=== PATIENT | female | born 1940 | race Caucasian/White ===

== ENCOUNTER 2019-11-06 06:51 | Inpatient (IN) ==
[2019-11-06] MEDS ORDERED: MORPHINE IV ONE ×2 (07:25→09:42)
[2019-11-06] MEDS ORDERED: NS 1,000 ML IV ONE (07:25)
[2019-11-06] MEDS ORDERED: ZOFRAN IV ONE (07:25)
--- NOTE | 2019-11-06 07:39 | PROVIDER DOCUMENTATION ---
HPI-General Adult - General Chief Complaint: Abdominal Pain Stated Complaint: abdominal pain n/v Time Seen by Provider: 11/06/19 07:19 Source: patient Allergies/Adverse Reactions: Patient Allergies Allergy/AdvReac Type Severity Reaction Status Date / Time codeine Allergy Unknown Verified 11/06/19 07:27 Home Medications: Home Medication List Medication Instructions Recorded Confirmed Last Taken Type Amiodarone [Cordarone] 200 mg PO DAILY 11/06/19 11/06/19 Unknown History Hydrochlorothiazide 25 mg PO DAILY 11/06/19 11/06/19 Unknown History Levothyroxine [Synthroid] 88 mcg PO DAILY 11/06/19 11/06/19 Unknown History Losartan [Cozaar] 100 mg PO DAILY 11/06/19 11/06/19 Unknown History Pravastatin Sodium 20 mg PO QHS 11/06/19 11/06/19 Unknown History - History of Present Illness -Gen Adult Nature of Presenting Problems: 030 onset uncontrolled upper abd pain and vomiting. vomit x 5 , diarrhea yesterday x 2. no fever allergic codeine can take morphine. no fever, no cough or sob. no pprior. A Fib and HTN but no anti-coag. PCP Carli Herr. Review of Systems - Adult - REVIEW OF SYSTEMS - ADULT Constitutional: reports: no symptoms reported. denies: chills, fever Eyes: reports: no symptoms reported Ears, Nose, Mouth & Throat: reports: no symptoms reported Cardiovascular: reports: irregular heart rate. denies: chest pain Respiratory: reports: no symptoms reported Gastrointestinal: reports: see HPI, abdominal pain, nausea, vomiting Genitourinary: denies: frequency, flank pain, urinary retention Musculoskeletal: reports: no symptoms reported Integumentary: reports: no symptoms reported Neurological: reports: no symptoms reported Psychiatric: reports: no symptoms reported Endocrine: reports: no symptoms reported Hematologic/Lymphatic: reports: no symptoms reported Allergic/Immunologic: reports: no symptoms reported All Other Systems: Reviewed and Negative Past History - Adult - PAST MEDICAL HISTORY-ADULT Review of Records: reports: Old Records Reviewed, Nursing Assessment Review, Medications Reviewed, Social history reviewed & non-contributory. Major Childhood Illnesses: reports: denies history Cardiovascular: reports: denies history Respiratory: reports: denies history Gastrointestinal: reports: denies history Obstetrical/Gynecological: reports: denies history Genitourinary: reports: denies history Musculoskeletal: reports: denies history Neurological: reports: denies history Endocrine/Immune: reports: denies history Other Conditions: reports: denies history Physical Exam-General - PHYSICAL EXAM-ADULT Initial Vital Signs Reviewed: Yes - CONSTITUTIONAL General Appearance: alert, moderate distress - EYES Eyes: PERRL/EOMI - HEAD, EARS, NOSE, MOUTH & THROAT HENMT: normocephalic/atraumatic, moist mucous membranes - NECK Neck: non-tender, full range of motion, supple - RESPIRATORY Respiratory: chest non-tender, lungs clear, normal breath sounds - CARDIOVASCULAR Cardiovascular: normal peripheral pulses, regular rate, rhythm, no edema, no gallop, no JVD, no murmur Progress - PLAN OF CARE/RESULTS Progress/Plan/Lab Results: Vital Signs - 8 hr 11/06/19 06:52 Temperature 97.7 F Pulse Rate 72 Respiratory Rate 22 Blood Pressure 178/92 O2 Sat by Pulse Oximetry 100 Orders Category Date Time Status Cardiac Monitoring DIRECTED Care 11/06/19 07:27 Ordered NEWS Score 2-4:Order NEWS Lactate Series NOW Care 11/06/19 07:01 Active Saline Loc NOW Care 11/06/19 07:27 Ordered NPO Diet 11/06/19 07:[address] ABD/PELVIS W/IV CONT ONLY [CT] Stat Exams 11/06/19 07:28 Ordered BLOOD CULTURE [BLDCUL] Stat Lab 11/06/19 07:27 Ordered CBC WITH ELECTRONIC DIFF [HEME] Stat Lab 11/06/19 07:27 Uncollected COMPREHENSIVE METABOLIC PANEL [CHEM] Stat Lab 11/06/19 07:27 Uncollected LACTATE, PLASMA [CHEM] Lab 11/06/19 07:15 Uncollected LACTATE, PLASMA [CHEM] Lab 11/06/19 10:15 Uncollected LACTATE, PLASMA [CHEM] Lab 11/06/19 13:15 Uncollected LIPASE [CHEM] Stat Lab 11/06/19 07:27 Uncollected MAGNESIUM [CHEM] Stat Lab 11/06/19 07:27 Uncollected OCCULT BLOOD NON-FECES Stat Lab 11/06/19 07:28 Uncollected PRO B-NATRIURETIC PEPTIDE Stat Lab 11/06/19 07:28 Uncollected TROPONIN T HIGH SENSITIVITY Stat Lab 11/06/19 07:28 Uncollected URINALYSIS W/POSS RFLX CULT [URINALYSIS] Stat Lab 11/06/19 07:28 Uncollected 0.9% Sodium Chloride Inj [Ns] 1,000 ml Med 11/06/19 07:25 Ordered IV 125 mls/hr Morphine Med 11/06/19 07:25 Once 4 mg IV NOW ONE Ondansetron [Zofran] Med 11/06/19 07:25 Once 4 mg IV NOW ONE EKG [EKG] Stat Ther 11/06/19 07:27 Ordered Result Diagrams: 11/06/19 07:38 11/06/19 07:38 - REASSESSMENT Reassessment #1 Time Reassessed: 09:58 Status: unchanged (pain better, note LA 2.5, no leukocytosis.: partial SBO) - CT/MRI 1 CT Study: Abdomen Impression: See EMR Report (partial SBO) - CONSULTS/PCP/HOSPITALIST Notification #1 *Consult/PCP/Hospitalist*: for hospitalist: dr Calvin Time Discussed: 10:02 Consult Disposition: Admit Departure - Departure Date of Disposition Decision: 11/06/19 Time of Disposition Decision: 10:03 DIAGNOSIS: Partial small bowel obstruction, Lactic acidosis Disposition: ADMITTED INPATIENT 09 Certified Medical Emergency: Emergent Condition: Stable Referrals and Follow-Ups: None,PCP [Primary Care Provider] - - Critical Care Note This patient required my direct & personal management of CC.: No Attestation - Physician/ ZENAIDA Attestation The physician spent face to face time with patient:: Yes Advanced Practice Provider documentation review:: Supervising physician onsite and consulted in the evaluation and care of this patient. The physician did have a face to face encounter with the patient.
[2019-11-06 07:44] LABS: BASO# 0.06 X1000 (0.0-0.2); EOS# 0.14 X1000 (0.0-0.7); EOS% 2.3 % (0.0-10.0); HEMATOCRIT 41.9 % (37.0-47.0); HEMOGLOBIN 13.4 g/dL (12.0-16.0); LYMPH# 1.79 X1000 (1.2-3.4); LYMPH% 29.8 % (20.5-51.1); MCH 30.2 PG (27-31); MCV 94.4 FL (81-99); MONO# 0.41 X1000 (0.11-0.59); MONO% 6.8 % (1.7-9.3); MPV 9.7 FL (7.4-10.4); NEUT# 3.61 X1000 (1.4-6.5); NEUT% 60.1 % (42.2-75.2); PLT 305 X1000 (130-400); RBC 4.44 XMIL (4.2-5.4); RDW 13.8 % (11.5-14.5); WBC 6.01 X1000 (4.8-10.8)
[2019-11-06 08:04] LABS: ALB/GLOB RATIO 2.3; ALBUMIN 4.1 g/dL (3.5-5.0); CALCIUM 10.2 mg/dL (8.8-10.2); CREATININE 1.3 mg/dL (0.5-0.9); MAGNESIUM 1.8 mg/dL (1.5-2.7); POTASSIUM 3.9 mmol/L (3.5-5.1); TOTAL BILIRUBIN 0.47 mg/dL (0.20-1.00); TOTAL PROTEIN 5.9 g/dL (6.3-8.3)
[2019-11-06 08:06] LABS: URINE SOURCE CLEAN CATCH
[2019-11-06 08:09] LABS: BILIRUBIN URINE NEGATIVE (NEGATIVE); BLOOD URINE NEGATIVE (NEGATIVE); COLOR YELLOW; GLUCOSE URINE NEGATIVE (NEGATIVE); KETONE URINE TRACE mg/dL (NEGATIVE); LEUKOCYTES URINE SMALL (NEGATIVE); NITRITE URINE NEGATIVE (NEGATIVE); PH URINE 7.5; PROTEIN URINE NEGATIVE (NEGATIVE); SP GRAVITY URINE 1.017; TURBIDITY URINE CLEAR (CLEAR); UROBILINOGEN URINE NORMAL (NORMAL)
[2019-11-06 08:10] LABS: UR EPITHELIAL CELLS <10 /HPF (<10); URINE BACTERIA NEGATIVE /HPF; URINE RBC <10 /HPF (<10); URINE WBC <10 /HPF (<10)
--- NOTE | 2019-11-06 08:58 | Diag Imaging Result Doc PS360 ---
EXAM: CT ABD/PELVIS W/IV CONT ONLY HISTORY: abd pain/obstruction/vomit TECHNIQUE: CT abdomen and pelvis with intravenous contrast, but without oral contrast. COMPARISON: None. FINDINGS: Prominent coronary artery calcifications with mild cardiomegaly. There is fibrosis in the lower lungs. The gallbladder has been removed. No focal hepatic abnormality although there is mild intrahepatic biliary dilatation. The common bile duct measures 12 mm. The pancreas is atrophic. No splenomegaly. There is a tiny amount of fluid about the spleen. Normal adrenal glands. There is scarring to each kidney. No hydronephrosis. Prominent atherosclerosis. No aortic aneurysm. There are fluid distended loops of bowel in the left abdomen. The distal small bowel loops are not distended. There is stool throughout the colon. There are sigmoid colonic diverticula. Tiny amount of fluid in the pelvis. The uterus has been removed. No pelvic mass. Urinary bladder is distended and normal. Orthopedic replacement of the left hip. There has been prior surgery to the lower lumbar spine. IMPRESSION: 1.Partial small bowel obstruction in the left abdomen 2.Cardiomegaly with prominent coronary artery calcifications and pulmonary fibrosis 3.Cholecystectomy with mild intrahepatic biliary dilatation 4.Trace ascites 5.Scarring to the kidneys 6.Hysterectomy 7.Sigmoid diverticulosis. This exam was performed using automated exposure control, adjustment of mA or kV according to patient size, and/or use of iterative reconstruction technique. Electronically signed by Praneeth Kiser 11/06/2019 8:56 AM
[2019-11-06 09:20] LABS: INR 0.86; PROTIME 11.7 Seconds (11.0-16.0)
[2019-11-06 09:21] LABS: PTT 27.2 Seconds (22.3-41.8)
--- NOTE | 2019-11-06 09:36 | Diag Imaging Result Doc PS360 ---
EXAM: CHEST-1 VIEW HISTORY: elevated lactate TECHNIQUE: Single view COMPARISON: None. FINDINGS: Poor inspiratory effort. The heart is not enlarged. There are increased interstitial markings in the mid and lower lungs. No consolidation. No pleural effusions identified. IMPRESSION: Cardiomegaly with mild pulmonary edema versus fibrosis Electronically signed by Praneeth Kiser 11/06/2019 9:33 AM
[2019-11-06] MEDS ORDERED: APRESOLINE IV PRN (10:27)
[2019-11-06] MEDS ORDERED: SODIUM CHLORIDE 0.9% INJ PRN (10:33)
[2019-11-06] MEDS ORDERED: SODIUM CHLORIDE 0.9% INJ SCH (10:45)
--- NOTE | 2019-11-06 11:19 | HISTORY AND PHYSICAL ---
PRIMARY CARE PROVIDER: Carli Herr MD. NEUROSURGEON: Primary neurosurgeon that recently did surgery on her back is Dr. Neil in [place]. CHIEF COMPLAINT: Nausea, vomiting, and bilateral upper quadrant abdominal pain. HISTORY OF PRESENT ILLNESS: Ms. Katelynn Tinsley is a 79-year-old female, with a medical history of hypothyroidism, hypertension, paroxysmal atrial fibrillation, and hyperlipidemia, who presents with bilateral upper quadrant abdominal pain that started around 3 a.m., throbbing in nature and continuous. Also, with nausea, vomiting, green to light brown in color. Last bowel movement being yesterday, it was a large amount, started out firm and then loosened up. She states that on October 20 she had L3 through L5 back surgery by Dr. Neil at [facility]. She has been taking [place] 5, but maybe only once every other day, much less active than she is used to, just short distances in the house due to the numbness and tingling and aching that she feels in her feet, and the weakness she feels in her legs, so she has been less active. Abdominal imaging reveals that she does have a partial small-bowel obstruction, so we will keep her n.p.o. and treat her symptomatically as well, and we will consult General Surgery. PAST MEDICAL HISTORY: 1. Hypothyroidism. 2. Hypertension. 3. Hyperlipidemia. 4. Paroxysmal atrial fibrillation, currently in normal sinus rhythm. 5. Sigmoid diverticulosis. PAST SURGICAL HISTORY: October 20 L3 through L5 back surgery at [facility] by Dr. Neil. Hysterectomy. She states a stomach surgery where they had to burn some nerves in her stomach; she was really unable to give much detail on that. Cholecystectomy. Appendectomy. Rectocele repair with mesh. SOCIAL HISTORY: Quit smoking in 2004. Prior to that she was a 1-pack per day smoker and started at the age of 29. Denies alcohol or illicit drug use. She lives at home alone. Her 1 month ago. She uses a walker to get around for ambulation. FAMILY HISTORY: Mother had diabetes and heart disease. Father had a heart attack and at the age of 46. ALLERGIES: Codeine. REVIEW OF SYSTEMS: Fourteen point review of systems are complete and all were negative except for those mentioned above in the HPI. PHYSICAL EXAMINATION: VITAL SIGNS: Temperature 97.7 degrees, heart rate 63, respiratory rate 20, blood pressure 177/87, O2 saturation 95% on room air. GENERAL: Ms. Katelynn Tinsley is a 79-year-old female. She is in no acute distress. She is able to answer questions appropriately. HEENT: Atraumatic, normocephalic. Pupils equal, round, and reactive to light. Extraocular movements intact. Mucous membranes are dry. NECK: Trachea midline. CARDIOVASCULAR: S1, S2. Regular rate and rhythm. No rubs, gallops, murmurs. No lower extremity edema. +2 dorsalis and radial pulses. Negative JVD and carotid bruits. PULMONARY: Clear to auscultate bilateral breath sounds. No accessory muscle use or work of breathing noted. GI: Soft, tender in the bilateral upper quadrants. She has positive bowel sounds x4. EXTREMITIES: Moves all extremities equally, with decreased range of motion. NEUROLOGIC: A and O x3. Follows commands. Decreased sensory bilateral lower extremities. They are numb and tingly, which has been that way since surgery. SKIN: Warm, dry, intact, with some bruising throughout the arms. Lumbar 3 through lumbar 5 incision dry, intact, and currently in the healing process. No signs or symptoms of infection, and it is well approximated. LABORATORY DATA: White blood cells 6,000, hemoglobin 13, hematocrit 41, platelet count 305,000. INR is 0.86, PTT is 27.2. Sodium 140, potassium 3.9, BUN 19, creatinine is 1.3, glucose 137. Calcium 10.2. Magnesium 1.8. Bilirubin 0.47. AST 21, ALT 14. CK 60. Troponin 52. ProBNP is 222. Albumin 4.1. Lipase 10. Lactate 2.5. Urinalysis with trace ketones, small leukocytes. IMAGING: Chest x-ray, cardiomegaly with mild pulmonary edema versus fibrosis. Abdominal pelvic CT, partial small-bowel obstruction in the left abdomen, cardiomegaly with coronary artery calcifications and pulmonary fibrosis, cholecystectomy with mild intrahepatic biliary dilatation, trace ascites, scarring to the kidneys, hysterectomy, sigmoid diverticulosis. ASSESSMENT AND PLAN: 1. Partial small-bowel obstruction, likely secondary to use of [place] and less activity post L3 through L5 back surgery that was performed on October 20. Currently, she is having emesis. She did have a large bowel movement yesterday. She still has positive bowel sounds. General Surgery has been consulted. Antiemetics added, pain medication added for pain control. We are currently keeping her n.p.o. We will order Physical Therapy to help her increase her activity. 2. Dehydration, with lactic acidosis. No other signs of infection. Lactic acidosis is secondary to dehydration. She is receiving IV fluid hydration. However, we will need to watch this as the imaging does show some pulmonary edema, but she is on room air and without any respiratory distress. 3. Mild acute kidney injury. This is secondary to dehydration. Kidney function, GFR down to 40, creatinine is 1.3. We will recheck in the morning. There are no old records to evaluate if she is she has a history of this. 4. History of paroxysmal atrial fibrillation, on amiodarone. She is currently in normal sinus rhythm. She is NPO so we will monitor closely. Could consider adding a beta clare. Currently, heart rate is in the 60s. 5. Hypertension. P.r.n. hydralazine IV added. 6. Hypothyroidism. Synthroid changed to intravenous. 7. Hyperlipidemia. We will hold off on her statin since she is currently NPO. 8. Recent back surgery October 20, it was L3 through L5, by Dr. Neil in [place]. Incision is well-approximated. There is no sign or symptom of infection, however, she has complained of numbness and tingling in her feet with weakness, so she is less active, which has also added to the reason why she is most likely with a partial small-bowel obstruction so we will order physical therapy for increase in her activity. Incision is nearly healed. We will order wound care to keep an eye on that. 9. Hyperglycemia. We will monitor it. If it is elevated in the morning, we can add a hemoglobin A1c. 10. Deep venous thrombosis prophylaxis. SCDs for now. Dictated by JOSE ANGEL Dempsey for Niraj Calvin MD cc: JOSE ANGEL Dempsey MD
[2019-11-06] MEDS: NS 1,000 ML IV SCH (11:37)
[2019-11-06] MEDS: PEPCID IV SCH ×2 (11:37→22:55)
--- NOTE | 2019-11-06 11:56 | EKG Report ---
Test Performed on : 11/06/2019 11:48:55 AM Test Reason : abd pain Blood Pressure : / mmHG Vent. Rate : 071 BPM Atrial Rate : 071 BPM P-R Int : 170 ms QRS Dur : 084 ms QT Int : 408 ms P-R-T Axes : 036 023 023 degrees QTc Int : 443 ms Normal sinus rhythm. Nonspecific ST and T wave abnormality Abnormal ECG When compared with ECG of 13-DEC-2008 17:12, QT has lengthened Confirmed by Ventura Hernandez MD ([id number]) on 11/07/2019 5:01:19 PM
[2019-11-06] MEDS: MORPHINE IV PRN ×2 (14:46→18:52)
[2019-11-06] MEDS: ZOFRAN IV PRN (14:46)
--- NOTE | 2019-11-06 15:52 | GENERAL SURGERY CONSULTATION ---
DATE: 11/06/2019 REASON FOR CONSULTATION: Partial small bowel obstruction. CHIEF COMPLAINT: Nausea, vomiting, with colicky abdominal pain. HISTORY OF PRESENT ILLNESS: This is a 79-year-old female with extensive surgical history. She has had an exploratory laparotomy with antrectomy and vagotomy for ulcer disease in the distant past. She has also had a hysterectomy and a recent back operation 2 weeks ago. In the middle of the night last night, she developed diffuse colicky abdominal pain, nausea, vomiting, and came the ER where CT scan was concerning for partial bowel obstruction. Bowel function remains near normal. She is passing gas and her emesis has resolved. MEDICAL HISTORY: Atrial fibrillation. She has degenerative spine disease, history of peptic ulcers, hypothyroidism, hyperlipidemia, and diverticulosis. SURGICAL HISTORY: As noted in her HPI, with recent L3 through 5 back operation through a posterior approach, cholecystectomy, appendectomy, and rectocele repair with mesh. SOCIAL HISTORY: She did quit smoking in the early , but previously was a pack a day. No alcohol. She lives at home. recently . FAMILY HISTORY: Negative for cancer. REVIEW OF SYSTEMS: Ten point negative other than what was mentioned in her HPI. PHYSICAL EXAMINATION: She is afebrile, pulse 86, blood pressure 159/75.General: She is alert, elderly, but no acute distress. HEENT: No scleral icterus. No cervical mass. Cardiovascular: Normal rate, and it seems to be in a regular rhythm at this junction. Abdomen: Soft,mildly distended but nontender, nondistended. Midline incision with no obvious hernia. Integument: Warm and dry. Psychiatric: Appropriate affect. Neurologic: No gross deficits. Lymphatic: No cervical, axillary or inguinal adenopathy. LABORATORY: White count 6, hematocrit is 41, platelets 305,000. INR 0.86. Creatinine is 1.3. LFTs are normal. Lipase is 10. Lactate is 1.2. Urinalysis: Small leukocytes. ASSESSMENT AND PLAN: A 79-year-old female with apparent partial bowel obstruction. She has an extensive surgical history and suspect this is related to adhesion. I do not see any evidence of ischemia on exam or based on her labs or imaging. She is being admitted to the Hospitalist service. Will follow along. Given her ongoing bowel function is reasonable, will keep her n.p.o. with IV fluids, though if she were to continue to vomit, she will need a nasogastric tube. She also has a leukocytosis. Possible this is just ileus from recent operation and pain medication I suspect but will follow her going forward. cc: Chelsey Lubin MD
--- NOTE | 2019-11-06 17:51 | HISTORY AND PHYSICAL ---
ADDENDUM: Ms. Tinsley is a 79-year-old female with history of multiple comorbidities including atrial fibrillation and degenerative disc disease, status post L3-L4 recent surgery. She came to the emergency room because of abdominal pain, nausea, vomiting. Imaging studies done revealed a partial small-bowel obstruction. She has been admitted for medical management. PAST SURGICAL HISTORY: Ms. Tinsley has a past history surgical history of appendectomy, rectocele repair, and cholecystectomy. She also refers to some stomach surgery where nerves were burned. Unsure if she had a perforated peptic ulcer disease with vagotomy. I am not sure. She is not able to give details either. PHYSICAL EXAMINATION: VITAL SIGNS: Her current vitals have been reviewed, and are all stable. ABDOMEN: Still soft. There is an epigastric scar from previous laparotomies. There is also a lower infraumbilical surgical scar from hysterectomy. Laboratory Data Has also been reviewed. Currently no changes. No concern except for a creatinine which is 1.3. IMAGING STUDIES: A CT scan of the abdomen and pelvis shows a partial small bowel obstruction on the left, cardiomegaly with prominent coronary artery calcification, and pulmonary fibrosis. ASSESSMENT/PLAN: 1. Abdominal pain secondary to partial small-bowel obstruction. The patient is currently n.p.o. Conservative management. Surgery has evaluated her. 2. Hypertension, controlled. 3. Dyslipidemia. 4. Hypothyroidism. 5. For now, Ms. Tinsley will be n.p.o. If she continues to have nausea and vomiting, I think it would be reasonable to put a nasogastric tube in. Continue IV fluids and re-examine her in the morning with a repeat KUB, and go from there. 6. We will also follow up with further recommendations from Surgery. Please refer to the details of the history and physical in the chart that has been dictated by the SENIOR INTERACTIVE DEVELOPER. I have reviewed it and have discussed the plan with her. cc: Niraj Calvin MD
[2019-11-07] MEDS: MORPHINE IV PRN ×2 (00:18→08:53)
[2019-11-07] MEDS: ZOFRAN IV PRN ×2 (00:18→08:52)
[2019-11-07] MEDS: NS 1,000 ML IV SCH ×2 (01:35→05:14)
[2019-11-07] MEDS: SYNTHROID IV SCH (06:16)
[2019-11-07 07:02] LABS: BASO# 0.04 X1000 (0.0-0.2); BASO% 0.3 % (0.0-0.8); EOS# 0.03 X1000 (0.0-0.7); EOS% 0.2 % (0.0-10.0); HEMATOCRIT 41.6 % (37.0-47.0); HEMOGLOBIN 12.8 g/dL (12.0-16.0); IMM GRAN# 0.04 X1000 (0.0-0.04); IMM GRAN% 0.3 % (0.0-0.5); LYMPH# 1.65 X1000 (1.2-3.4); MCH 29.7 PG (27-31); MCHC 30.8 g/dL (33-37); MCV 96.5 FL (81-99); MONO# 0.81 X1000 (0.11-0.59); MONO% 6.4 % (1.7-9.3); MPV 9.9 FL (7.4-10.4); NEUT# 10.13 X1000 (1.4-6.5); NEUT% 79.8 % (42.2-75.2); PLT 300 X1000 (130-400); RBC 4.31 XMIL (4.2-5.4); RDW 14.1 % (11.5-14.5)
[2019-11-07 07:31] LABS: FREE T4 1.54 ng/dL (0.93-1.70); TSH 0.86 uIUmL (0.27-4.20)
[2019-11-07 07:36] LABS: ALB/GLOB RATIO 1.7; ALBUMIN 3.2 g/dL (3.5-5.0); CALCIUM 8.8 mg/dL (8.8-10.2); CREATININE 1.1 mg/dL (0.5-0.9); MAGNESIUM 1.5 mg/dL (1.5-2.7); POTASSIUM 4.5 mmol/L (3.5-5.1); TOTAL BILIRUBIN 0.59 mg/dL (0.20-1.00); TOTAL PROTEIN 5.1 g/dL (6.3-8.3)
--- NOTE | 2019-11-07 08:29 | Diag Imaging Result Doc PS360 ---
KUB ABDOMEN - 11/07/2019 INDICATION: f/u partial sbo COMPARISON: CT from 11/06/2019 FINDINGS: There is a nonobstructive bowel gas pattern. No free air or abdominal calcifications. There are cholecystectomy clips. Mild constipation in the proximal colon. IMPRESSION: Mild constipation. Otherwise no acute disease. Electronically signed by Reji Lazaro 11/07/2019 8:26 AM
[2019-11-07] MEDS ORDERED: MIRALAX PO SCH (09:00)
[2019-11-07] MEDS: D5 1/2 NS + KCL 20 MEQ 1,000 ML IV SCH ×2 (11:00→20:39)
[2019-11-07] MEDS: PEPCID IV SCH ×2 (11:15→20:40)
[2019-11-07] MEDS: DULCOLAX PR SCH (11:15)
--- NOTE | 2019-11-07 12:32 | GENERAL SURGERY PROGRESS NOTE ---
DATE: 11/07/2019 SUBJECTIVE: Some nausea last night. No vomiting. She is still having intermittent colicky abdominal pain. Describes her abdomen is sore although she is moving about the bed comfortably. She is adamant that she wants oral intake. No fevers. OBJECTIVE: Pulse 86, blood pressure 133/65. General: She is alert. Cardiovascular normal rate. Her abdomen is less distended, is soft with no peritoneal signs. It Is non tender. LABORATORY DATA: White count is 12, today up from 6, hematocrit 41. Her creatinine is 1.1 down from 1.3. Her carbon dioxide is 22 up from 21. She had an abdominal x-ray that showed nonobstructive bowel gas pattern. There is no free air. There does appear to be some constipation in the with stool noted in her colon. ASSESSMENT AND PLAN: This is a 79-year-old female with partial bowel obstruction. She is having some bowel function, some residual abdominal discomfort. I would avoid any thing from above. I have adamantly cautioned her against taking p.o. at this juncture. Although improving her symptoms is persistent I suspect that this will resolve. It is reasonable to stimulate her below with Dulcolax suppository. We will continue to follow her closely. cc: Chelsey Lubin MD
--- NOTE | 2019-11-07 14:20 | PROGRESS NOTE ---
DATE: 11/07/2019 SUBJECTIVE: This morning, Ms. Tinsley refers to be doing a lot better. She says she did have 1 episode of vomiting, and that the abdominal discomfort has significantly improved. She was also very adamant to see if we can get her something to at least drink. OBJECTIVE: Vital Signs: Blood pressure is 113/65, pulse of 86, respirations 20, temperature 98.5 degrees. General: Ms. Tinsley is a 79-year-old, elderly, female. She was in bed. She is not in any cardiopulmonary distress. HEENT: Mucosa is pink, but slightly dry. Anicteric. Acyanotic. Neck: Supple. No JVD. Respiratory: There is good air entry bilaterally. No crepitations. No rhonchi. Cardiovascular: Regular rate and rhythm. No murmurs, no rubs, no gallops. GI: Abdomen is soft. Mild tenderness in the midepigastrium. There is an old surgical scar in the midepigastrium and also the infraumbilical. There are bowel sounds. CLEANER CARPET AND UPHOLSTERY: The patient is awake, alert, and oriented. The patient does have some numbness in both lower extremities from her previous lower back surgery. IMAGING AND LABORATORY DATA: WBC is 12.70, hemoglobin is 13.8, platelet count of 300,000. Chemistry is also reviewed. Sodium is 146, potassium is 4.5, chloride is 110, creatinine is down to 1.1. A KUB this morning shows mild constipation, nonobstructive bowel gas pattern. ASSESSMENT: 1. Abdominal pain on presentation secondary to partial small-bowel obstruction. The patient seems to be slightly getting better. She is quite adamant that she wants something to drink. KUB this morning shows a nonobstructive panel. I will put her on ice chips and sips of water if it is okay with Surgery. 2. Constipation. I think this is also causing a major part of the patient's symptoms at this point. We are going to stimulate her from below with Dulcolax suppository, and MiraLAX from above, if it is okay with Surgery. 3. Hypothyroidism. Will start the patient on intravenous Synthroid since she is currently nothing by mouth. 4. Dyslipidemia, stable. 5. Hypertension. 6. Recent lower back surgery for symptomatic spinal stenosis. We have consulted Physical Therapy to work with Ms. Tinsley. 7. Hypernatremia with hyperchloremia. I have changed the current intravenous fluids to D5 with half-normal saline with potassium. 8. Acute kidney injury. Creatinine is down to 1.1. Will continue with gentle fluids. cc: Niraj Calvin MD
[2019-11-08] MEDS: ZOFRAN IV PRN (02:36)
[2019-11-08] MEDS: SYNTHROID IV SCH (06:04)
[2019-11-08] MEDS: D5 1/2 NS + KCL 20 MEQ 1,000 ML IV SCH ×2 (06:10→16:41)
[2019-11-08 07:21] LABS: AGAP 8; ALB/GLOB RATIO 1.1; ALBUMIN 2.5 g/dL (3.5-5.0); ALKALINE PHOSPHATASE 74 U/L (32-104); BUN 15 mg/dL (8-22); CALCIUM 8.2 mg/dL (8.8-10.2); CHLORIDE 110 mmol/L (98-107); COSMO 281; CREATININE 0.9 mg/dL (0.5-0.9); ESTIMATED GFR > 60; GLUCOSE 110 mg/dL (70-104); GOT 19 U/L (10-30); GPT 10 U/L (10-36); MAGNESIUM 1.5 mg/dL (1.5-2.7); POTASSIUM 4.4 mmol/L (3.5-5.1); SODIUM 140 mmol/L (136-145); TCO2 22 mmol/L (25-35); TOTAL BILIRUBIN 0.42 mg/dL (0.20-1.00); TOTAL PROTEIN 4.7 g/dL (6.3-8.3)
[2019-11-08 08:05] LABS: BASO# 0.03 X1000 (0.0-0.2); BASO% 0.4 % (0.0-0.8); EOS# 0.17 X1000 (0.0-0.7); EOS% 2.1 % (0.0-10.0); HEMATOCRIT 33.4 % (37.0-47.0); HEMOGLOBIN 10.2 g/dL (12.0-16.0); LYMPH# 1.71 X1000 (1.2-3.4); LYMPH% 20.7 % (20.5-51.1); MCH 29.7 PG (27-31); MCHC 30.5 g/dL (33-37); MCV 97.1 FL (81-99); MONO# 0.51 X1000 (0.11-0.59); MONO% 6.2 % (1.7-9.3); MPV 9.7 FL (7.4-10.4); NEUT# 5.86 X1000 (1.4-6.5); NEUT% 70.6 % (42.2-75.2); PLT 240 X1000 (130-400); RBC 3.44 XMIL (4.2-5.4); RDW 13.9 % (11.5-14.5); WBC 8.28 X1000 (4.8-10.8)
--- NOTE | 2019-11-08 08:44 | Diag Imaging Result Doc PS360 ---
EXAM: KUB ABDOMEN HISTORY: SBO TECHNIQUE: Single view COMPARISON: 11/07/2019 FINDINGS: No bowel obstruction. There appears to be less stool in the colon on the current exam. No organomegaly. There are surgical clips in right upper quadrant. Mild scoliosis with degenerative spine changes. No abnormal abdominal calcifications. IMPRESSION: Mild constipation. Electronically signed by Praneeth Kiser 11/08/2019 8:41 AM
[2019-11-08] MEDS: DULCOLAX PR SCH (09:55)
[2019-11-08] MEDS: PEPCID IV SCH ×2 (10:01→23:03)
--- NOTE | 2019-11-08 14:18 | GENERAL SURGERY PROGRESS NOTE ---
DATE: 11/08/2019 SUBJECTIVE: She is passing gas. No more abdominal pain. No fevers. No tachycardia. OBJECTIVE: Vital Signs: Blood pressure 135/62. General: She is alert. Cardiovascular: Normal rate. Abdomen: Soft, nontender, nondistended. LABORATORY DATA: I reviewed her labs. White count normal at 8, hematocrit 33, creatinine 0.9. ASSESSMENT AND PLAN: This is a 79-year-old female with resolving bowel obstruction. We will give her clear liquids today. I have encouraged her go slowly and continue to be out of bed and ambulate as much as possible. cc: Chelsey Lubin MD
--- NOTE | 2019-11-08 15:32 | PROGRESS NOTE ---
DATE: 11/08/2019 SUBJECTIVE: I have seen and examined Ms. Tinsley today. Ms. Tinsley refers to be feeling a whole lot better. She said abdominal pain has significantly improved. Ms. Tinsley also refers that she has had 2 large bowel movement and since then, she feels a whole lot better. OBJECTIVE: Vital Signs: Her current vitals, blood pressure is 135/62, pulse of 79, respirations 18, temperature 98.2 degrees. The patient is saturating 95% on room air. General: Ms. Tinsley is a 79-year-old female. She is in bed. No distress. Mucosa is pink and moist. Anicteric. Acyanotic. Neck: Supple. Chest: Clear to auscultation. There were no crepitations. No rhonchi. Cardiovascular: Regular rate and rhythm. No murmurs, no rubs, no gallops Gastrointestinal: Abdomen was soft, minimally tender in the epigastrium. There is an old surgical scar in the mid epigastrium and also in the infraumbilical region. Bowel sounds were present. 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 No focal deficit. LABORATORY DATA: CBC for most part unremarkable except for mild normocytic anemia. Chemistry is also reviewed. Sodium is down to 140. Rest of chemistry is unremarkable. So far blood cultures have been 48 hours negative. CURRENT MEDICATIONS: Have all been reviewed and no changes. ASSESSMENT: 1. Abdominal pain on presentation secondary to partial small-bowel obstruction. This has improved during the hospital course. It appears bowel functioning has reestablished. The patient has had bowel movements. We are going to start her on clear liquids today. 2. Constipation improved. The patient has had 2 bowel movements. We are going to continue with the bowel regimen. 3. Hypothyroidism will continue with IV Synthroid. This will be switched back to p.o. once patient's enteral route has been re-established. 4. Dyslipidemia stable. 5. Hypertension controlled. 6. Recent lower back surgery due to symptomatic spinal stenosis. We will continue with physical therapy and patient will follow up with her neurosurgeon after discharge. 7. Hypernatremia improved with fluids. 8. Acute kidney injury on admission resolved. PLAN: In general, Ms. Tinsley is a 79-year-old female admitted / due to partial small bowel obstruction and constipation. She seems to be improving on conservative management. Bowel function seems to have re-establish. We will start her on clear liquids today and gradually advance. We will also follow up with further recommendation from surgery. I think Ms Tinsley is a potential discharge tomorrow if she continues doing well and tolerating her meals. cc: Niraj Calvin MD MTDD
--- NOTE | 2019-11-08 21:03 | Extremity Venous Study ---
PROCEDURE NAME: Venous U/S Bilateral Legs - 11/07/2019 STUDY: Bilateral lower extremity venous duplex, and color flow imaging study using the [employer] vivid E9 ultrasound System with a 9 L-D transducer. REFERRING PHYSICIAN: Dr. Calvin. IDENTIFYING DATA: This is a 79-year-old female. CONTINUOUS PROCESS MACHINE OPERATOR: Bushra. INDICATIONS: Bilateral lower extremity pain and edema suggestive of deep venous thrombosis. FINDINGS: The right common femoral vein its branches, deep and superficial femoral veins were satisfactorily imaged. They had flow through them and were compressible. Right popliteal vein and the deep veins below the right knee were all compressible and had flow through them. The superficial veins of the right lower extremity were compressible throughout their length. The left common femoral vein and its branches, deep and superficial femoral veins were also satisfactorily imaged. They had flow through them and were compressible. Left popliteal vein and the deep veins below the left knee were all compressible and had flow through them. The superficial veins the left lower extremity were compressible throughout their length. INTERPRETATION: No evidence of acute deep or superficial venous thrombosis of the bilateral lower extremities. cc: MD Niraj Brasher MD
[2019-11-09] MEDS: D5 1/2 NS + KCL 20 MEQ 1,000 ML IV SCH (04:00)
[2019-11-09 06:09] LABS: BASO# 0.05 X1000 (0.0-0.2); BASO% 0.9 % (0.0-0.8); EOS# 0.19 X1000 (0.0-0.7); EOS% 3.3 % (0.0-10.0); HEMATOCRIT 35.5 % (37.0-47.0); HEMOGLOBIN 10.9 g/dL (12.0-16.0); LYMPH# 1.67 X1000 (1.2-3.4); LYMPH% 28.6 % (20.5-51.1); MCH 29.7 PG (27-31); MCHC 30.7 g/dL (33-37); MCV 96.7 FL (81-99); MONO% 6.8 % (1.7-9.3); MPV 10.1 FL (7.4-10.4); NEUT# 3.53 X1000 (1.4-6.5); NEUT% 60.4 % (42.2-75.2); PLT 258 X1000 (130-400); RBC 3.67 XMIL (4.2-5.4); RDW 13.7 % (11.5-14.5); WBC 5.84 X1000 (4.8-10.8)
[2019-11-09 06:28] LABS: AGAP 10; ALB/GLOB RATIO 1.2; ALKALINE PHOSPHATASE 81 U/L (32-104); BUN 7 mg/dL (8-22); CALCIUM 9.1 mg/dL (8.8-10.2); CHLORIDE 108 mmol/L (98-107); COSMO 281; CREATININE 0.8 mg/dL (0.5-0.9); ESTIMATED GFR > 60; GLUCOSE 127 mg/dL (70-104); GOT 18 U/L (10-30); GPT 12 U/L (10-36); MAGNESIUM 1.5 mg/dL (1.5-2.7); POTASSIUM 4.3 mmol/L (3.5-5.1); SODIUM 141 mmol/L (136-145); TCO2 23 mmol/L (25-35); TOTAL PROTEIN 5.5 g/dL (6.3-8.3)
[2019-11-09] MEDS: SYNTHROID IV SCH (06:40)
--- NOTE | 2019-11-09 07:34 | Diag Imaging Result Doc PS360 ---
KUB ABDOMEN - 11/09/2019 INDICATION: SBO COMPARISON: 11/08/2019 FINDINGS: There is a nonobstructive bowel gas pattern. No free air or abdominal calcifications. Average quantity of stool. IMPRESSION: No acute disease. Electronically signed by Reji Lazaro 11/09/2019 7:31 AM
[2019-11-09 07:41] VITALS: BP 156/64
--- NOTE | 2019-11-09 08:53 | GENERAL SURGERY PROGRESS NOTE ---
DATE: 11/09/2019 SUBJECTIVE: Continues to have bowel function. No further nausea or vomiting. She is tolerating clear liquids. She is hungry and is asking for more food. No fevers. No tachycardia. I reviewed her labs. White count is normal. Creatinine is 0.8. Electrolytes are okay. ASSESSMENT AND PLAN: This is a 79-year-old female with resolving bowel obstruction. We will advance her diet to soft today, continue out of bed and ambulate as possible, home later today or tomorrow. cc: Chelsey Lubin MD
--- NOTE | 2019-11-09 09:27 | DISCHARGE SUMMARY ---
ADMISSION DATE: 11/06/2019 DISCHARGE DATE: 11/09/2019 HISTORY OF PRESENT ILLNESS: This is a 79-year-old patient of Dr. Carli Herr. Primary neurosurgeon, recently did surgery on her back, Dr. Neil in [place]. She presented with nausea, vomiting, and bilateral upper quadrant abdominal pain. This is a 79-year-old female with medical history of hypothyroidism, hypertension, paroxysmal atrial fibrillation, and hyperlipidemia, who presented with bilateral upper quadrant abdominal pain that started at about 3 a.m., throbbing in nature and continuous, also with nausea, and vomiting, green to light brown color. Last bowel movement was the day before admission, large amount, started out from firm and then loosened up. She stated that on October 20 she had L3 through L5 back surgery per Dr. Neil at [facility]. She has been taking [place] 5 but she said she does not like the stuff and does not take it very often, maybe once every other day. She is much less active than she is used to being, just walks short distances due to the numbness and tingling, aching that she feels in her feet, and the weakness she feels in her legs. She has been less active. Abdominal imaging reveals she did have a partial small-bowel obstruction, so we kept her NPO and admitted her. PAST MEDICAL HISTORY: 1. Hypothyroidism. 2. Hypertension. 3. Hyperlipidemia. 4. Paroxysmal atrial fibrillation, currently in normal sinus rhythm. 5. Sigmoid diverticulosis. PAST SURGICAL HISTORY: October 20 she had surgery on L3 through L5 in [place] per Dr. Neil. She states she has had stomach surgery where they had to burn some nerves in her stomach, not able to give much detail, but apparently a large abdominal surgery. Cholecystectomy. Appendectomy. Rectocele repair with mesh. She quit smoking in 2004. ADMISSION DIAGNOSIS: 1. Partial small-bowel obstruction, likely secondary to use of [place] and less active, status post surgery on L3 through L5 on October 20, and she had some nausea. 2. Dehydration, with a little lactic acidosis. No signs of bacterial infection. 3. Mild acute kidney injury, probably secondary to prerenal dehydration. Creatinine was 1.3. 4. Paroxysmal atrial fibrillation. She is on amiodarone, has remained in sinus rhythm. 5. Hypertension. Blood pressure monitored and well controlled. 6. Hypothyroidism. Continue her Synthroid. 7. Hyperlipidemia. She is off of her statin while she was NPO, but she does take a statin. 8. Recent back surgery L3 through L5 in [place]. Incision well approximated. No sign or symptom of infection. She does complain of numbness and tingling in her feet and some weakness. She has been ambulating some. 9. Hyperglycemia. HOSPITAL COURSE: She got an abdominal and pelvic CT on 11/05 that showed partial small-bowel obstruction in the left abdomen, cardiomegaly, prominent coronary artery calcifications, pulmonary fibrosis, cholecystectomy, mild intrahepatic biliary dilatation, trace ascites, scarring in the kidneys, hysterectomy, sigmoid diverticulosis. Chest x-ray on 11/05 cardiomegaly, mild pulmonary edema versus fibrosis. General Surgery was asked to see, Dr. Daniel Lubin, for apparent partial small-bowel obstruction. She had extensive surgical history, suspect related to adhesions. Did not have any evidence of ischemia on examination, and so we continued hydration and bowels seemed to start working well. Followup abdominal x-ray on 11/06 mild constipation, otherwise nothing particularly abnormal. She had extremity venous study done. There was no evidence of acute deep or superficial venous thrombosis in bilateral lower extremities. Repeat abdominal x-ray on 11/07, mild constipation, and then again repeat on 11/08 no acute disease. She has had a bowel movement and she was anxious to go home, so she wanted to advance her diet and do this at home, but she is anxious to go home so we will get her ready go home on 11/09/2019. DISCHARGE MEDICATIONS: She can have some Dulcolax suppositories daily as needed. I will give her, her home medication of amiodarone 200 mg a day. We will hold the hydrochlorothiazide for now. Synthroid 88 mcg a day. Cozaar 100 mg daily. Pravastatin 20 mg at bedtime. cc: Cristopher Garcia MD
== END 2019-11-09 10:20 | disposition home health service (06) | DRG 389 ==
LOC: SUPCPDRO → ED 06:51 → SUATTDRO 10:42 → EDIPHOLD 10:42 → 4N 13:37
PROVIDERS: ATTEND Emergency Medicine